=== PATIENT | female | born 1985 | race Native Hawaiian/Other Pacific Islander ===

== ENCOUNTER 2017-11-26 13:50 | Day surgery (SDC) | payer OTHER ==
[2017-11-26] MEDS ORDERED: Sodium Chloride 0.9% 1,000 ML IV STA (14:11)
--- NOTE | 2017-11-26 14:42 | CP.PCM.HP ---
History of Present Illness - History of Present Illness History of Present Illness: 32 y/o @ 9+ wks with known missed aboriton x 1 week, reprots new onset vaignal bleeding. pt states she was referred ot er my md office. pt reprots cramping pain that comes and goes denies any dizzyness, lightheadnss, OB: FT , unocmplated, SAB x 1 DxC [employer]: dneie shx of abnormal pap, fibroids, ovarian cyst, sti PMH: Denies PSH: DxC FHX: non contriuboyr MEDS: prental vitamin NKDA Present on Admission - Present on Admission Any Indicators Present on Admission: No Review of Systems - Constitutional Constitutional: As Per HPI - EENT Nose/Mouth/Throat: absent: As Per HPI, Epistaxis, Nasal Congestion, Nasal Discharge, Nasal Obstruction, Nasal Trauma, Nose Pain, Post Nasal Drip, Sinus Pain, Sinus Pressure, Bleeding Gums, Change in Voice, Dental Pain, Dry Mouth, Dysphagia, Halitosis, Hoarsness, Lip Swelling, Mouth Lesions, Mouth Pain, Odynophagia, Sore Throat, Throat Swelling, Tongue Swelling, Facial Pain, Neck Pain, Neck Mass, Other - Cardiovascular Cardiovascular: absent: As Per HPI, Acrocyanosis, Chest Pain, Chest Pain at Rest , Chest Pain with Activity, Claudication, Diaphoresis, Dyspnea, Dyspnea on Exertion, Edema, Irregular Heart Rhythm, Pain Radiating to Arm/Neck/Jaw, Leg Edema, Leg Ulcers, Lightheadedness, Orthopnea, Palpitations, Paroxysmal Nocturnal Dyspnea, Pedal Edema, Radiating Pain, Rapid Heart Rate, Slow Heart Rate, Syncope, Other - Respiratory Respiratory: absent: As Per HPI, Cough, Dyspnea, Hemoptysis, Dyspnea on Exertion , Wheezing, Snoring, Stridor, Pain on Inspiration, Chest Congestion, Excessive Mucous Production, Change in Mucous Color, Pain with Coughing, Other - Genitourinary Genitourinary: absent: As Per HPI, Change in Urinary Stream, Difficulty Urinating, Dysuria, Flank Pain, Hematuria, Pyuria, Nocturia, Urinary Incontinence, Urinary Frequency, Urinary Hesitance, Urinary Urgency, Voiding Freq/Small Amts, Freq UTI, Hx Renal/Bladder Calculi, Hx /Renal Surgery, Bladder Distension, Other - Reproductive: Male Additional comments: abdomianl pain, vaginal bleeding - Menstruation Menstruation: As Per HPI - Musculoskeletal Musculoskeletal: absent: As Per HPI, Abnormal Gait, Arthralgias, Atrophy, Back Pain, Deformity, Joint Swelling, Limited Range of Motion, Loss of Height, Muscle Cramps, Muscle Weakness, Myalgias, Neck Pain, Numbness, Radiating Pain into Limb, Stiffness, Tingling, Other Past Patient History - Infectious Disease Hx of Infectious Diseases: None - Past Social History Smoking Status: Never Smoked Chewing Tobacco Use: No Cigar Use: No Alcohol: None - PSYCHIATRIC Hx Substance Use: No - SURGICAL HISTORY Hx Surgeries: Yes Other/Comment: D&C for miscarrige - ANESTHESIA Hx Anesthesia: Yes Hx Anesthesia Reactions: No Meds Allergies/Adverse Reactions: Allergies Allergy/AdvReac Type Severity Reaction Status Date / Time No Known Allergies Allergy Verified 11/26/17 14:03 Physical Exam - Constitutional Appears: Well, Non-toxic - Head Exam Head Exam: ATRAUMATIC, NORMAL INSPECTION - Eye Exam Eye Exam: EOMI Pupil Exam: PERRL - ENT Exam ENT Exam: Mucous Membranes Moist - Neck Exam Neck exam: Positive for: Normal Inspection - Respiratory Exam Respiratory Exam: Clear to Auscultation Bilateral, NORMAL BREATHING PATTERN - Cardiovascular Exam Cardiovascular Exam: REGULAR RHYTHM, +S1, +S2 - GI/Abdominal Exam GI & Abdominal Exam: Soft, Tenderness Additional comments: non guarding, no rebound tendere, no rigdity - Exam Additional comments: External Genitalia: no gross abnormalites Vagian; large blood clot, Cervix; 2/50/ products at os Uteurs; Non tender Andenxa; non tender Anus, perienum: grossl ynormal Results - Vital Signs Recent Vital Signs: Last Vital Signs Temp 98.9 F 11/26/17 13:59 Pulse 72 11/26/17 13:59 Resp 14 11/26/17 13:59 BP 116/70 11/26/17 13:59 Pulse Ox 100 11/26/17 13:59 Assessment & Plan (1) Incomplete Assessment and Plan: 1. Observation status 2. Expectant vs medical vs surgical manamgne dicussed [facility] patient. pt consented for Suction DxC 3. OR/Anesthesia aware 4. Preo Op labs 5. Doxycycline 200mg IV x 1 6. scds Status: Acute
[2017-11-26 14:50] LABS: BASO % 0.5 % (0.0-2.0); EOS # 0.3 K/uL (0.0-0.7); EOS % 4.7 % (0.0-4.0); HEMOGLOBIN 13.4 g/dL (11.0-16.0); LYMPH # 1.6 K/uL (1.0-4.3); LYMPH % 27.2 % (20.0-40.0); MEAN CELL VOLUME 93.5 fL (81.0-99.0); MEAN CORPUSCULAR HEMOGLOBIN 32.8 pg (27.0-31.0); MEAN CORPUSCULAR HGB CONC 35.1 g/dL (33.0-37.0); MEAN PLATELET VOLUME 7.5 fL (7.2-11.7); MONO # 0.5 K/uL (0.0-0.8); MONO % 8.9 % (0.0-10.0); NEUT # 3.4 K/uL (1.8-7.0); NEUT % 58.7 % (50.0-75.0); NRBC % 0.1 % (0.0-2.0); RBC 4.07 Mil/uL (3.80-5.20); RED CELL DISTRIBUTION WIDTH 13.4 % (11.5-14.5); WHITE BLOOD COUNT 5.8 K/uL (4.8-10.8)
--- NOTE | 2017-11-26 14:56 | C.PDOC ---
History Of Present Illness 32 y/o p/w vaginal bleeding. 9 weeks , known with missed x 1 week but began having vaginal bleeding. Patient reports intermittent crampy abdominal pain. Denies lightheadedness, vomiting, dyspnea. Time Seen by Provider: 11/26/17 14:03 Chief Complaint (Nursing): Abdominal Pain Past Medical History Vital Signs: Last Vital Signs Temp 98.9 F 11/26/17 13:59 Pulse 72 11/26/17 13:59 Resp 14 11/26/17 13:59 BP 116/70 11/26/17 13:59 Pulse Ox 100 11/26/17 15:04 Family History: States: No Known Family Hx - Social History Hx Alcohol Use: No Hx Substance Use: No - Immunization History Hx Tetanus Toxoid Vaccination: No Hx Influenza Vaccination: No Hx Pneumococcal Vaccination: No Review Of Systems Except As Marked, All Systems Reviewed And Found Negative. Constitutional: Negative for: Fever Cardiovascular: Negative for: Chest Pain Physical Exam - Physical Exam Additional Physical Exam Comments: Gen: NAD Head: NC Eyes: No icterus ENT: MMM CV: Regular rate Lungs: CTA b/l Extremities: No swelling Neuro: Alert ED Course And Treatment - Laboratory Results Result Diagrams: 11/26/17 14:46 O2 Sat by Pulse Oximetry: 100 Medical Decision Making Medical Decision Making: Dr. Rey accepts patient to her service for D&C. Disposition Discussed With : Yajaira Rey - Disposition Disposition: HOSPITALIZED Disposition Time: 15:04 Condition: STABLE Forms: [employer] (Citizen Of [place]) - Clinical Impression Clinical Impression: Incomplete
[2017-11-26 15:10] LABS: ALB/GLOB RATIO 1.2 (1.0-2.1); ALBUMIN 4.3 g/dL (3.5-5.0); CALCIUM 8.9 mg/dl (8.6-10.4); GFR AFRICAN-AMERICAN > 60; GFR NON-AFRICAN AMERICAN > 60
[2017-11-26 15:11] LABS: PROTHROMBIN TIME 10.8 SECONDS (9.7-12.2)
[2017-11-26 15:14] LABS: ALT/SGPT 15 U/L (9-52); AST/SGOT 29 U/L (14-36); BLOOD UREA NITROGEN 10 mg/dL (7-17)
[2017-11-26] MEDS: Doxycycline 100 mg Inj ONE ×2 (17:44→18:25)
[2017-11-26] MEDS ORDERED: Midazolam 2 MG/2 ML VIAL ONE (17:53)
[2017-11-26] MEDS ORDERED: Propofol 10 mg/ml Inj (20 ML) ONE (17:53)
--- NOTE | 2017-11-26 18:58 | PCM.SURG1 ---
Surgeon's Initial Post Op Note - Surgeon's Notes Surgeon: Yajaira Rey MD Apron Trimmer: none Pre-Operative Diagnosis: Incomplete 8 weeks Operative Findings: antervered utuers, 2cm dilated, 8mm suction curved currette used Post-Operative Diagnosis: same as above Operation Performed: Suction Dilatoin and Currettage Specimen/Specimens Removed: products of conception Estimated Blood Loss: EBL {In ML}: 20 Blood Products Given: N/A Drains Used: No Drains Post-Op Condition: Good Date of Surgery/Procedure: 11/26/17 Time of Surgery/Procedure: 18:00
[2017-11-26 19:25] VITALS: RESP 12
[2017-11-26 20:07] VITALS: BP 113/68; PULSE 76; TEMP 98.5; O2SAT 98
--- NOTE | 2017-11-27 03:58 | OP ---
PROCEDURE DATE: 11/26/2017 SURGEON: Yajaira Rey MD FLEET COORDINATOR: None. PREOPERATIVE DIAGNOSIS: Incomplete at 8 weeks. POSTOPERATIVE DIAGNOSIS: Incomplete at 8 weeks. OPERATIVE FINDINGS: Anteverted uterus, 2 cm dilated. An 8 mm suction curette was used. OPERATION PERFORMED: Suction dilation and curettage. SPECIMENS REMOVED: Products of conception. ESTIMATED BLOOD LOSS: 20 mL. BLOOD PRODUCTS: None. COMPLICATIONS: None. DESCRIPTION OF PROCEDURE: The patient was taken to the operating room where she was given general anesthesia. Once found to be adequate, she was placed on the operating table in dorsal lithotomy position with legs supported using stirrups. The patient was then prepped and draped in the usual sterile fashion. Timeout confirmed correct patient and procedure. The patient was given preoperative prophylactic antibiotics. Bimanual exam was performed with the above-mentioned findings. A red rubber catheter was inserted into the urethra to drain the bladder. Chong retractor was placed on the anterior and posterior fornix of the vagina. The cervix was adequately visualized and appeared to be 2 cm in size. Cervix was sequentially dilated to allow for introduction of an 8-mm suction curette, which was advanced through the fundus and the suction curette was then activated and rotated 360 degrees until all products were removed. A gentle curettage was done to 360 degrees and all products were removed. The curette was then inserted one additional time until all products were removed and air bubbles were noted within the suction curette. All instruments were removed. There was good hemostasis at the tenaculum puncture site which was placed on the anterior lip of the cervix at the beginning of the case. Good hemostasis noted. At the end of the procedure, all needle, sponge, and instrument counts were noted and correct x2. The patient tolerated the procedure well and was transferred to the recovery room in stable condition. Yajaira Rey MD
== END 2017-11-26 20:30 | disposition home or self-care (01) ==
LOC: C.ER 13:50 → C.SDS 15:11
PROVIDERS: ATTEND Obstetrics & Gynecology
DX: O03.4 Incomplete spontaneous abortion without complication (principal)
CPT/HCPCS: 59812; 80053; 85025; 85610; 85730; 86850; 86900; 96360; J2001; J2250; J2704; J3010; J7040